=== PATIENT | female | born 1970 | race Asian ===

== ENCOUNTER 2017-10-18 20:11 | Emergency (ER) | payer OTHER ==
--- NOTE | 2017-10-18 20:35 | PDOC ---
History of Present Illness - History of Present Illness Initial Comments: 10/18/17 20:46 Patient is a 49 F with no significant PMHx, who presents with epigastric pain for 1 week. She states she had the flu last week with fever and cough. Patient states that her cough resolved after 3 days into her flu. Patient presents today with epigastric pain that worsened last night. She describes her pain as sharp, constant, and radiates to her right upper back. She also states that she produced a red-like sputum today that smells rust-like. She states She also admits to associated SOB and feeling overly tired. Denies recent nausea, vomiting, diarrhea. Denies chest pain, diaphoresis. Denies recent travel, trauma, excessive drinking, taking medications. Surgical Hx: (9 years ago) <Nichol Valenzuela - Last Filed: 10/18/17 20:46> <Ze Pierce - Last Filed: 10/19/17 06:37> - General Chief Complaint: Pain, Acute Stated Complaint: UPPER ABDOMINAL PAIN Time Seen by Provider: 10/18/17 20:14 Past History <Nichol Valenzuela - Last Filed: 10/18/17 20:46> <Ze Pierce - Last Filed: 10/19/17 06:37> - Past Medical History Allergies/Adverse Reactions: Allergies Allergy/AdvReac Type Severity Reaction Status Date / Time No Known Allergies Allergy Verified 10/18/17 20:13 Home Medications: Ambulatory Orders Famotidine [Pepcid] 20 mg PO BID #20 tablet 10/18/17 Review of Systems - Review of Systems Comments:: 10/18/17 20:46 GENERAL/CONSTITUTIONAL: No fever or chills. No weakness. HEAD, EYES, EARS, NOSE AND THROAT: No change in vision. No ear pain or discharge. No sore throat. GASTROINTESTINAL: +epigastric pain. No nausea, vomiting, diarrhea or constipation. GENITOURINARY: No dysuria, frequency, or change in urination. CARDIOVASCULAR: No chest pain or shortness of breath. RESPIRATORY: +SOB +cough, No recent wheezing. MUSCULOSKELETAL: No joint or muscle swelling or pain. No neck or back pain. SKIN: No rash NEUROLOGIC: No headache, vertigo, loss of consciousness, or change in strength/ sensation. ENDOCRINE: No increased thirst. No abnormal weight change. HEMATOLOGIC/LYMPHATIC: No anemia, easy bleeding, or history of blood clots. ALLERGIC/IMMUNOLOGIC: No hives or skin allergy. <Nichol Valenzuela - Last Filed: 10/18/17 20:46> *Physical Exam - Vital Signs Last Vital Signs Temp Pulse Resp BP Pulse Ox 98.4 F 76 16 154/82 99 10/18/17 20:14 10/18/17 20:14 10/18/17 20:14 10/18/17 20:14 10/18/17 20:14 - Physical Exam Comments: 10/18/17 20:53 GENERAL: Awake, alert, and fully oriented, in no acute distress HEAD: No signs of trauma EYES: PERRLA, EOMI, sclera anicteric, conjunctiva clear ENT: Auricles normal inspection, hearing grossly normal, nares patent. Pharyngeal erythema without exudates. Moist mucosa NECK: Normal ROM, supple, no lymphadenopathy, JVD, or masses LUNGS: Breath sounds equal, clear to auscultation bilaterally. No wheezes, and no crackles HEART: Regular rate and rhythm, normal S1 and S2, no murmurs, rubs or gallops ABDOMEN: Soft, epigastric tenderness to palpation. Normoactive bowel sounds. No guarding, no rebound. No masses EXTREMITIES: Normal range of motion, no edema. No clubbing or cyanosis. No cords, erythema, or tenderness NEUROLOGICAL: Cranial nerves II through XII grossly intact. Normal speech, normal gait SKIN: Warm, Dry, normal turgor, no rashes or lesions noted. <Nichol Valenzuela - Last Filed: 10/18/17 20:46> ED Treatment Course - LABORATORY CBC & Chemistry Diagram: 10/18/17 21:03 10/18/17 22:10 <Ze Pierce - Last Filed: 10/19/17 06:37> Medical Decision Making - Medical Decision Making 10/19/17 06:36 observed x 3 hrs serial abd exams symptoms imporved after ED mgmt at time of dc, abd nt, tolerating PO. Likley GI in original. Outpt antacid. GI fu <Ze Pierce - Last Filed: 10/19/17 06:37> *DC/Admit/Observation/Transfer <Nichol Valenzuela - Last Filed: 10/18/17 20:46> <Ze Pierce - Last Filed: 10/19/17 06:37> Diagnosis at time of Disposition: Gastritis Qualifiers: Gastritis type: unspecified gastritis Chronicity: acute Gastritis bleeding: presence of bleeding unspecified Qualified Code(s): K29.00 - Acute gastritis without bleeding - Discharge Dispostion Disposition: HOME Condition at time of disposition: Stable - Prescriptions Prescriptions: Famotidine [Pepcid] 20 mg PO BID #20 tablet - Referrals Referrals: Seb Aponte MD [Staff Physician] - Call tomorrow - Patient Instructions Printed Discharge Instructions: DI for Gastritis
[2017-10-18] MEDS ORDERED: ACETAMINOPHEN 1000 MG/100 ML VIAL (NON FORMULARY) IVPB ONE (20:39)
[2017-10-18 20:44] VITALS: BP 154/82; PULSE 76; TEMP 98.4; BMI 22.3
[2017-10-18] MEDS ORDERED: ACETAMINOPHEN INJECTION 100 ML IVPB ONE (21:29)
[2017-10-18] MEDS ORDERED: FAMOTIDINE 20 MG/50 ML IVPB 20 MG/50 ML MG IVPB ONE ×2 (21:29→22:50)
[2017-10-18] MEDS ORDERED: FAMOTIDINE IV 20 MG/12 ML VIAL IVPUSH SCH (22:00)
[2017-10-18 22:18] LABS: BASO % 0.6 % (0-2.0); EOS % 0.9 % (0-4.5); HEMATOCRIT 43.2 % (32.4-45.2); HEMOGLOBIN 14.4 GM/dl (10.7-15.3); LYMPH % 31.3 % (8-40); MCH 30.6 pg (25.7-33.7); MCHC 33.3 g/dl (32.0-36.0); MEAN PLT VOLUME 10.9 fl (7.5-11.1); MONO % 6.5 % (3.8-10.2); NEUT % 60.7 % (42.8-82.8); PLATELET COUNT 213 K/MM3 (134-434); RDW 12.2 % (11.6-15.6); WHITE BLOOD COUNT 6.3 K/mm3 (4.0-10.8)
[2017-10-18 22:42] LABS: ALBUMIN 4.2 g/dl (3.5-5.0); ALK PHOS 60 U/L (32-92); ANION GAP 2 (8-16); BILIRUBIN,TOTAL 0.6 mg/dl (0.2-1.0); BLOOD UREA NITROGEN 11 mg/dl (7-18); CHLORIDE 103 mmol/L (98-107); CO2 29 mmol/L (22-28); CREATININE 0.6 mg/dl (0.6-1.3); GLUCOSE,RANDOM 94 mg/dl (74-106); SGOT/AST 15 U/L (10-42); SGPT/ALT 12 U/L (10-40); SODIUM 134 mmol/L (136-145); TOT PROT 6.5 g/dl (6.4-8.3)
[2017-10-18] MEDS ORDERED: MAG HYDROX/AL HYDROX/SIMETH 355 ML ORAL.SUSP PO ONE (22:49)
[2017-10-18] MEDS ORDERED: MAG HYDROX/AL HYDROX/SIMETH 30 ML UNIT-DOSE CUP ONE (22:50)
[2017-10-18] MEDS ORDERED: FAMOTIDINE IV 20 MG/12 ML VIAL IVPUSH ONE (23:00)
[2017-10-18 23:19] LABS: LIPASE 37 U/L (73-393)
--- NOTE | 2017-10-20 14:58 | EKG ---
Test Reason : Blood Pressure : / mmHG Vent. Rate : 068 BPM Atrial Rate : 068 BPM P-R Int : 118 ms QRS Dur : 086 ms QT Int : 400 ms P-R-T Axes : 063 065 047 degrees QTc Int : 425 ms NORMAL SINUS RHYTHM NORMAL ECG NO PREVIOUS ECGS AVAILABLE Confirmed by SALEEM RIVAS MD ([id number] on 10/20/2017 2:58:15 PM Referred By: DR RANDHAWA Confirmed By:SALEEM RIVAS MD
== END 2017-10-18 23:40 | disposition home or self-care (01) ==
LOC: FER 20:11
PROC: 3E033GC Introduction of Other Therapeutic Substance into Peripheral Vein, Percutaneous Approach (ICD-10-PCS; principal; 2017-10-18)
PROC: 3E033NZ Introduction of Analgesics, Hypnotics, Sedatives into Peripheral Vein, Percutaneous Approach (ICD-10-PCS; 2017-10-18)
DX: K29.00 Acute gastritis without bleeding (principal)
CPT/HCPCS: 36415; 71046-TC; 80053; 83690; 84484; 84703; 85025; 93005; 99281-25

== ENCOUNTER 2018-09-01 11:11 | Emergency (ER) | payer BC, OTHER ==
[2018-09-01 11:17] VITALS: TEMP 98.7; BMI 20.5
--- NOTE | 2018-09-01 11:19 | PDOC ---
History of Present Illness - General Chief Complaint: Headache Stated Complaint: head ache,neck pain,numbness to rigth side of face Time Seen by Provider: 09/01/18 11:17 - History of Present Illness Initial Comments: Eliana Slade is a 48yo woman with no known medical history who presents with 2-3 days of headache and now drooping of the right eyelid that started this morning , along with blurry vision in the R eye. Ms Slade does not speak fluent Uzbek and her is present to assist with any needed translation. Ms Slade reports that she started to have pain in the right occipital head and upper right neck 2-3 days ago. She applied a topical Khmer medication (unable to specify what it is) with some improvement in her symptoms. The following day , she woke up with a severe headache over the top of her head and around to the posterior head. She denies any associated symptoms at that time including nausea /vomiting or neurological changes. She did not take any pain medication, but her mother gave her a prescription medication. They do not know what the medicine was but say it is to "improve blood flow in the head" and that it is "for strokes." After taking her mother's medication, she does note some nausea but no vomiting. Today she woke up without a headache but noted drooping of her right upper eyelid, R eye watering, and R eye blurriness. Per her , her face looks normal otherwise, and her voice sounds normal as well. She denies fevers, difficulty swallowing, weakness in her extremities, or other neurological symptoms. She does get occasional headaches but denies h/o migraines. She does not take any medications regularly at home. She has never had anything similar occur in the past. Past History - Past Medical History Allergies/Adverse Reactions: Allergies Allergy/AdvReac Type Severity Reaction Status Date / Time No Known Allergies Allergy Verified 09/01/18 11:14 Home Medications: Ambulatory Orders Hydrocortisone 1% Cream [Hytone 1% Cream -] 1 applic TP BID PRN #1 tube Naproxen 500 mg PO BID PRN 7 Days #14 tablet 09/01/18 COPD: No Other medical history: head aches,neck issues - Suicide/Smoking/Psychosocial Hx Smoking History: Never smoked Have you smoked in the past 12 months: No Hx Alcohol Use: No Drug/Substance Use Hx: No Substance Use Type: None Neuro Specific PMHX - Complaint Specific PMHX Glaucoma: No Herniated Disk: No Laminectomy: No Migraine: No Multiple Sclerosis: No Neuropathy: No TIA: No Review of Systems - Review of Systems Comments:: General: No fevers, no chills, no weight or appetite change, no malaise HEENT: +blurry vision, +recent headache, +drooping eyelid, no changes in hearing no congestion, no sore throat CV: No chest pain, no palpitations, no LE edema Pulm: No SOB, no cough, no wheezing GI: No nausea or vomiting, no change in bowel habits, no melena : No frequency, no urgency, no dysuria Musc: No back pain, no joint swelling, no recent injury Skin: No rash, no lesions, no erythema Endo: No excessive thirst, no heat/cold intolerance Heme: No unusual bruising or bleeding, no swollen glands Neuro: No syncope, no numbness/tingling, no focal weakness Vasc: No claudication Psych: No recent change in mood, no SI or HI *Physical Exam - Vital Signs Last Vital Signs Temp Pulse Resp BP Pulse Ox 98.7 F 76 18 129/72 99 09/01/18 11:12 09/01/18 11:12 09/01/18 11:12 09/01/18 11:12 09/01/18 11:12 - Physical Exam Comments: General: Comfortable, no acute distress HEENT: PERRL, EOMI, ptosis of R eyelid but face otherwise symmetric. MMM, voice normal, normal neck ROM, no LAD. Rash v excoriations to posterior neck, b/l. No neck tenderness, no meningeal signs, no sinus tenderness. Cards: RRR, no murmur appreciated Pulm: Comfortable on room air, clear to auscultation bilaterally Abd: Soft, nontender, nondistended : No CVA tenderness Ext: Atraumatic. No LE edema. ROM intact. Strength 5/5 and equal bilaterally Vasc: Extremities WWP. Palpable radial and pedal pulses bilaterally Skin: Normal color, no rashes or lesions other than posterior neck as mentioned above. Neuro: A&Ox3, R ptosis and slight R-sided facial sensory changes (light touch feels "different") but CN otherwise intact, normal speech, motor/sensory grossly intact and symmetric in torso and extremities Psych: Mood appropriate to situation Moderate Sedation - Procedure Monitoring Vital Signs: Procedure Monitoring Vital Signs Temperature 98.7 F 09/01/18 11:12 Pulse Rate 76 09/01/18 11:12 Respiratory Rate 18 09/01/18 11:12 Blood Pressure 129/72 09/01/18 11:12 O2 Sat by Pulse Oximetry (%) 99 09/01/18 11:12 ED Treatment Course - LABORATORY CBC & Chemistry Diagram: 09/01/18 11:45 09/01/18 12:25 Medical Decision Making - Medical Decision Making 09/01/18 12:47 Eliana Slade is an otheriwe healthy 48yo woman who presents with b/l headache starting 2-3 days ago with associated right neck or right occipital head tenderness. Starting today her headache has resolved but she now has right- sided ptosis and blurred vision without any other neurological changes. - Differential includes CVA or intracranial hemorrhage, migraine, viral illness w/ Burger's palsy, or previously undiagnosed mass/tumor. Less likely meningitis given lack of fever or meningeal signs and only focal neurological symptoms. - CBC, CMP sent to r/o acute abnormalities - CT head completed soon after arrival in ED. Reviewed in ED and read by radiologist; no abnormalities noted. 09/01/18 12:54 - Chemistry hemolized. Resent. Added lyme to r/o possible cause of Burger's palsy. ESR added to r/o temporal arteritis. However, both relatively unlikely given lack of associated symptoms. - CBC reviewed. No concerning abnormalities noted. - 1L NS bolus and reglan ordered 09/01/18 13:33 - Labs reviewed, no abnormalities on coags or chemistry - Spoke to Dr Almanzar for neurology recs. MRI brain ordered per recommendation. Dr Almanzar will see pt later today 09/01/18 14:51 - MRI completed, Read by radiology. No pathology noted - Dr Almanzar called, is on his way to see Ms Slade - Dispo depending on neurology recs 09/01/18 15:13 - Dr Almanzar saw pt in ED. Feels symptoms are most likely due to a migraine. - Plan to discharge patient home w/ follow up Seen and discussed with Dr Jaziel Lisa PGY1 *DC/Admit/Observation/Transfer Diagnosis at time of Disposition: Migraine - Discharge Dispostion Disposition: HOME Condition at time of disposition: Stable Decision to Admit order: No - Prescriptions Prescriptions: Hydrocortisone 1% Cream [Hytone 1% Cream -] 1 applic TP BID PRN #1 tube PRN Reason: Wound Care Naproxen 500 mg PO BID PRN 7 Days #14 tablet PRN Reason: Pain - Referrals Referrals: Lam Almanzar MD [Staff Physician] - [facility] [place] [facility] [place] [Provider Group] - Patient Instructions Printed Discharge Instructions: DI for Migraine Additional Instructions: Discharge Instructions: You were seen in the emergency department for right-sided facial weakness and eyelid drooping as well as right facial numbness. You had blood tests, a CT scan and an MRI of your brain; the results of these tests were all normal. You were also evaluated by a neurologist, Dr Almanzar. Based on all of the tests and your neurological evaluation, your symptoms are most likely due to migraine headache. Home Care: - You have been prescribed an anti-inflammatory pain medication called naproxen. You may take this as needed up to twice daily for head or neck discomfort. This medication is also available over the counter (brand name Aleve ), but if you need to continue taking this medication for more than a week, you should follow up with a primary doctor. - You have also been prescribed a cream for the rash on the back of your neck. You may apply this lotion up to twice per day for one week. You may also consider applying any fragrance-free lotion such as Cetaphil, Aveeno, or Eucerin. Follow Up: - Schedule an appointment with neurology for follow up within the next 1-2 weeks. You have been referred to Dr Almanzar, the neurologist who saw you in the emergency department. - Make an appointment with a primary care physician for within the next 1-2 weeks for general medical follow up. You should establish regular medical care. You should also follow up if your symptoms continue for more than a week with the prescribed treatment. You have been referred to the internal medicine resident clinic to establish care. - Seek immediate medical treatment if your symptoms worsen, if you have the worst headache of your life (especially if it starts suddenly), if you have significant facial droop, difficulty speaking, slurred speech, or additional neurological symptoms such as weakness or numbness in your arm/leg on one side. - Post Discharge Activity
[2018-09-01] MEDS ORDERED: SODIUM CHLORIDE 0.9% 1000 ML INFUS.BAG IV ONE (12:00)
[2018-09-01 12:03] LABS: BASO % 0.5 % (0-2.0); EOS % 1.8 % (0-4.5); HEMATOCRIT 43.9 % (32.4-45.2); HEMOGLOBIN 14.3 GM/dl (10.7-15.3); LYMPH % 37.3 % (8-40); MCH 29.9 pg (25.7-33.7); MCHC 32.6 g/dl (32.0-36.0); MEAN CELL VOLUME 91.6 fl (80-96); MEAN PLT VOLUME 10.1 fl (7.5-11.1); MONO % 7.4 % (3.8-10.2); PLATELET COUNT 210 K/MM3 (134-434); RBC 4.79 M/mm3 (3.60-5.2); RDW 12.6 % (11.6-15.6); WHITE BLOOD COUNT 4.5 K/mm3 (4.0-10.8)
[2018-09-01] MEDS ORDERED: METOCLOPRAMIDE HCL INJECTION 10 MG/2 ML VIAL IVPUSH ONE (12:05)
[2018-09-01] MEDS ORDERED: METOCLOPRAMIDE HCL INJECTION 10 MG/2 ML VIAL ONE (12:08)
--- NOTE | 2018-09-01 12:28 | PDOC ---
Attending Attestation - Resident Resident Name: Nikki Lisa - ED Attending Attestation I have performed the following: I have examined & evaluated the patient, The case was reviewed & discussed with the resident, I agree w/resident's findings & plan, Exceptions are as noted - HPI HPI: 09/01/18 12:22 48 yo F with no pmhx here with c/o headache which started 3 days ago, now with right sided facial numbness and tingling sensation, also feels blurry vision on right eye. no h/o migraines, no trauma. no f/c. h/o headaches, but never diagnosed with migraines. did have associated nausea after taking medication she received from family member " to increase blood flow to brain" unsure of name of medication. no arm or leg weakness. no balance issues. no speech changes. - Physicial Exam PE: 09/01/18 12:24 awake alert head atraumatic. mild right eyelid ptosis. no temporal artery tenderness. lungs clear bilaterally heart rrr no mrg abd soft nt nd. ext wwp. nuero 5/5 strength all four ext. sensation decreased right upper face, mild eye weakness with closing eyes, no malalignment appreciated. forehead wrinkles bilaterally with eyebrow raise. speech clear. VF intact. EOMI. perrl. TM clear bilaterally. posterior neck skin with eczematous type rash. 09/01/18 15:18 - Medical Decision Making 09/01/18 12:27 pt with decreased sensation right sided facal weakness reported vision changes. diffferential early bells palsy ( incomlete ) cva, mass lesion, electrolyte abnramlity, atypical migraine. plan lyme titer, ct head. labs. due to fact incomplete findings. pt may require mri. will consult nuerology, Dr Sivan webb. awaiting call back. 09/01/18 15:18 ct head negative. mri unremarkable. pt evaluated by nuerology, felt to be atypical migraine with neck strain exacerbation or component . dermatitis type rash posterior neck recommend steroid cream. will followup with nuerology as outpt. naprosyn bid for pain prn. Heart Score/ECG Review #1 General ECG Interpretation: Sinus Rhythm, Normal Intervals, No acute ischemic changes Compared to previous ECG there are: Other (sinus bradycardia 59)
[2018-09-01 12:53] LABS: ACTIVATED PTT 30.8 SECONDS (25.2-36.5)
[2018-09-01 12:55] LABS: ALBUMIN 4.3 g/dl (3.5-5.0); ALK PHOS 76 U/L (32-92); ANION GAP 4 MMOL/L (8-16); BILIRUBIN,TOTAL 0.5 mg/dl (0.2-1.0); BLOOD UREA NITROGEN 12 mg/dl (7-18); CALCIUM 9.4 mg/dl (8.4-10.2); CHLORIDE 106 mmol/L (98-107); CO2 27 mmol/L (22-28); CREATININE 0.7 mg/dl (0.6-1.3); GLUCOSE,RANDOM 124 mg/dl (74-106); POTASSIUM 4.4 mmol/L (3.5-5.1); SGOT/AST 18 U/L (10-42); SGPT/ALT 18 U/L (10-40); SODIUM 137 mmol/L (136-145); TOT PROT 7.2 g/dl (6.4-8.3)
[2018-09-01 12:58] LABS: INR 1.02 (0.82-1.09); PROTHROMBIN TIME (PATIENT) 11.4 SEC (10.2-13.0)
[2018-09-01 14:40] VITALS: BP 119/77; PULSE 78
--- NOTE | 2018-09-01 15:24 | CON.NEURO ---
Consult Consult Specialty:: Neurology Referred by:: Dr. Gabriel Reason for Consultation:: Headache, Ptosis, Facial Numbness - History of Present Illness Chief Complaint: Headache, Facial numbness History of Present Illness: 48 year old woman who awoke from a nap 2 days ago with headache at the top of her head and facial numbness/tingling. She took one of her mother's prescribed blood thinner medications (name unknown) that she takes for stroke prevention, and her headache went away after two hours. She has had intermittent facial numbness since then. Today she went to see a doctor and an executive services administrator was concerned enough to send her to the ER prior to seeing MD. IN ER she was noted earlier to have ptosis of hte right eye which has subsequently cleared. She does have some ongoing facial paresthesisas. SHe has had headaches before, no associated photophobia, phonophobia or nausea. Also some neck pain on and off. Yesterday. she had pain for a while over an area in the right occiput, and points to the area where the greater occipital nerve typically emerges. - History Source History Provided By: Patient, Family Member Limitations to Obtaining History: No Limitations - Alcohol/Substance Use Hx Alcohol Use: No - Smoking History Smoking history: Never smoked Have you smoked in the past 12 months: No Home Medications - Allergies Allergies/Adverse Reactions: Allergies Allergy/AdvReac Type Severity Reaction Status Date / Time No Known Allergies Allergy Verified 09/01/18 11:14 - Home Medications Home Medications: Ambulatory Orders NK [No Known Home Medication] 09/01/18 Physical Exam-Neuro Vital Signs: Vital Signs Temperature 98.7 F 09/01/18 11:12 Pulse Rate 78 09/01/18 14:39 Respiratory Rate 18 09/01/18 11:12 Blood Pressure 119/77 09/01/18 14:39 O2 Sat by Pulse Oximetry (%) 99 09/01/18 11:12 Constitutional: Yes: Well Nourished, No Distress Neck: Yes: WNL Labs: CBC, BMP 09/01/18 11:45 09/01/18 12:25 INR, PTT INR 1.02 (0.82-1.09) 09/01/18 12:29 - Neuro Exam Level Of Consciousness: Yes: Alert, Oriented to Person, Oriented to Place, Oriented to Time Eyes: Yes: PERRLA Speech: WNL Cranial Nerves II-XII Intact: No (patchy V2 paresthesias, not all of v2) DTR's: 2+ Left Bicep, 2+ Right Bicep, 2+ Left Tricep, 2+ Right Tricep, 2+ Left Brachioradialis, 2+ Right Brachioradialis Babinski: Absent Response to light touch: Normal Motor Strength: 5/5: Left Arm, Right Arm, Left Leg, Right Leg (No pronator drift ) Gait: Normal Imaging - Results Cat Scan: Report Reviewed Ultrasound: Report Reviewed (negative) Problem List - Problems (1) Migraine with aura Code(s): G43.109 - MIGRAINE WITH AURA, NOT INTRACTABLE, W/O STATUS MIGRAINOSUS (2) Occipital neuralgia of right side Code(s): M54.81 - OCCIPITAL NEURALGIA Assessment/Plan This is likely a migrainous phenomenon triggered by occipital neuralgia, perhaps associated with cervical spine disease. The normal MRI and non- vascular pattern are reassuring. I can follow her up as an outpatient and she can take naprosyn 200-400 bid for a couple of days until she feels better.
--- NOTE | 2018-09-03 12:35 | EKG ---
Test Reason : Blood Pressure : / mmHG Vent. Rate : 059 BPM Atrial Rate : 059 BPM P-R Int : 120 ms QRS Dur : 076 ms QT Int : 426 ms P-R-T Axes : 052 050 060 degrees QTc Int : 421 ms SINUS BRADYCARDIA OTHERWISE NORMAL ECG WHEN COMPARED WITH ECG OF 18-OCT-2017 20:17, NO SIGNIFICANT CHANGE WAS FOUND Confirmed by SILVA REN MD ([id number]) on 09/03/2018 12:35:10 PM Referred By: MD WOOD Confirmed By:SILVA REN MD
== END 2018-09-01 15:35 | disposition home or self-care (01) ==
LOC: FER 11:11
PROC: 3E033GC Introduction of Other Therapeutic Substance into Peripheral Vein, Percutaneous Approach (ICD-10-PCS; principal; 2018-09-01)
PROC: 3E0337Z Introduction of Electrolytic and Water Balance Substance into Peripheral Vein, Percutaneous Approach (ICD-10-PCS; 2018-09-01)
DX: G43.909 Migraine, unspecified, not intractable, without status migrainosus (principal)
CPT/HCPCS: 36415; 70450-TC; 70551-TC; 80053; 84703; 85025; 85610; 85651; 85730; 86618; 93005; 99283-25; J7030

== ENCOUNTER 2018-11-26 03:46 | Emergency (ER) | payer BC ==
[2018-11-26 03:55] VITALS: BP 148/98; PULSE 80; TEMP 97.7; BMI 24.7
[2018-11-26] MEDS ORDERED: MAG HYDROX/AL HYDROX/SIMETH 30 ML UNIT-DOSE CUP ONE (04:05)
--- NOTE | 2018-11-26 04:05 | PDOC ---
History of Present Illness - General Chief Complaint: Chest Pain Stated Complaint: CHEST PAIN Time Seen by Provider: 11/26/18 03:59 History Source: Patient Exam Limitations: No Limitations - History of Present Illness Initial Comments: 11/26/18 04:06 This is a 48-year-old female who comes in complaining of a burning sensation radiating from her abdomen up to her throat. Patient said she has had it in the past and saw her primary care doctor who worked her up for cardiac causes that they were normal. Patient said that the pain is worse since she took an ibuprofen for the pain. Patient denies any cough or congestion, patient denies any fevers or chills nausea vomiting or diarrhea. Patient denies any history of hypertension, high cholesterol, diabetes or family history of heart disease. Patient says the pain woke her from sleep. Allergies: None Past Medical History: none Social history: Lives with family. No smoking. No alcohol. No illicit drugs. Surgical history: None General: No fevers or chills, no weakness, no weight loss HEENT: No change in vision. No sore throat,. No ear pain CardioVascular: no chest discomfort. No shortness of breath Respiratory:No cough, or wheezing. Gastrointestinal: no nausea, vomiting, diarrhea or constipation, No rectal bleeding Genitourinary: No dysuria, hematuria, or frequency Musculoskeletal: No joint or muscle pain or swelling Neurologic: No headache, vertigo, dizziness or loss of consciousness Psychiatric: nor depression Skin: No rashes or easy bruising Endocrine: no increased thirst or abnormal weight change Allergic: no skin or latex allergy All other systems reviewed and normal Exam: General: Well-nourished well-developed individual, no acute distress HEENT: Throat: Normal, tonsils normal, no erythema or exudate Neck: Supple, no meningeal signs, no lymphadenopathy Eyes::Pupils equal reactive and round, extraocular motion intact Chest: Nontender to palpation Cardiac: S1-S2 normal, regular rate and rhythm, no murmurs rubs or gallops Respiratory: Lungs clear to auscultation bilateral Abdomen: Soft, nondistended, normal bowel sounds, there is no tenderness on palpation diffusely Extremities: Warm, dry, no cyanosis, clubbing, or edema Skin: No rashes Neuro: Alert and oriented x3, CN II - XII intact, nonfocal exam with normal strength, normal sensation, normal reflexes, normal gait, Psych: Normal mood and affect Past History - Past Medical History Allergies/Adverse Reactions: Allergies Allergy/AdvReac Type Severity Reaction Status Date / Time No Known Allergies Allergy Verified 09/01/18 11:14 Home Medications: Ambulatory Orders NK [No Known Home Medication] 11/26/18 COPD: No - Suicide/Smoking/Psychosocial Hx Smoking History: Never smoked Have you smoked in the past 12 months: No Hx Alcohol Use: No Drug/Substance Use Hx: No Substance Use Type: None *Physical Exam - Vital Signs Last Vital Signs Temp Pulse Resp BP Pulse Ox 97.7 F 80 18 148/98 100 11/26/18 03:50 11/26/18 03:50 11/26/18 03:50 11/26/18 03:50 11/26/18 03:50 Moderate Sedation - Procedure Monitoring Vital Signs: Procedure Monitoring Vital Signs Temperature 97.7 F 11/26/18 03:50 Pulse Rate 80 11/26/18 03:50 Respiratory Rate 18 11/26/18 03:50 Blood Pressure 148/98 11/26/18 03:50 O2 Sat by Pulse Oximetry (%) 100 11/26/18 03:50 ED Treatment Course - Medications Given in the ED: ED Medications Discontinued Medications Generic Name Dose Route Start Last Admin Trade Name Freq PRN Reason Stop Dose Admin Al Hydroxide/Mg Hydroxide 30 ml 11/26/18 04:06 11/26/18 04:08 Mylanta Oral Suspension - PO 11/26/18 04:07 30 ml ONCE ONE Administration *DC/Admit/Observation/Transfer Diagnosis at time of Disposition: Gastritis Qualifiers: Gastritis type: unspecified gastritis Chronicity: unspecified Gastritis bleeding: without bleeding Qualified Code(s): K29.70 - Gastritis, unspecified, without bleeding - Discharge Dispostion Disposition: HOME Condition at time of disposition: Stable Decision to Admit order: No - Referrals Referrals: Arlette Turpin [Primary Care Provider] - - Patient Instructions Additional Instructions: Purchase veim-pcd-reygbrn antacid such as Nexium and take it once a day for the next 2 weeks. In addition if you experience any of the burning chest pain to 2 tums. Return to the emergency department immediately with ANY new, persistent or worsening symptoms. Continue any medications as previously prescribed by your physician. You should follow up with your primary doctor as soon as possible regarding today's emergency department visit. . Please make sure your doctor reviews the results of your emergency evaluation. Thank you for coming to the Emergency Department today for your care. It was a pleasure to see you today. Please note that your evaluation is INCOMPLETE until you follow-up with your doctor. - Post Discharge Activity
[2018-11-26] MEDS ORDERED: MAG HYDROX/AL HYDROX/SIMETH 30 ML UNIT-DOSE CUP PO ONE (04:06)
--- NOTE | 2018-11-27 11:22 | EKG ---
Test Reason : Blood Pressure : / mmHG Vent. Rate : 064 BPM Atrial Rate : 064 BPM P-R Int : 120 ms QRS Dur : 076 ms QT Int : 388 ms P-R-T Axes : -01 043 028 degrees QTc Int : 400 ms NORMAL SINUS RHYTHM NORMAL ECG WHEN COMPARED WITH ECG OF 01-SEP-2018 15:29, NO SIGNIFICANT CHANGE WAS FOUND Confirmed by RISHI MAZARIEGOS MD ([id number]) on 11/27/2018 11:22:18 AM Referred By: MD BLOCK Confirmed By:RISHI MAZARIEGOS MD
== END 2018-11-26 05:45 | disposition home or self-care (01) ==
LOC: FER 03:46
DX: K29.70 Gastritis, unspecified, without bleeding (principal)
CPT/HCPCS: 36415; 82550; 82553; 84484; 93005; 99281-25

== ENCOUNTER 2018-12-08 20:29 | Emergency (ER) | payer BC ==
[2018-12-08 20:36] VITALS: BP 150/98; PULSE 70; TEMP 98.3; BMI 24.7
--- NOTE | 2018-12-08 20:43 | PDOC ---
History of Present Illness - General Chief Complaint: Pain Stated Complaint: ABD/CHEST/BACK PAIN Time Seen by Provider: 12/08/18 20:42 - History of Present Illness Initial Comments: This 48-year-old woman presents with a few hour history of epigastric pain radiating to her right upper back. Pain began after she drank coffee. Patient was seen with similar symptoms here 3 weeks ago. At that time, symptoms began after taking ibuprofen. 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 Chest and abdominal/pelvic CT were performed here Over the last 24 hours, ordered by her doctors. Official interpretation showed no abnormality except for small left upper lobe pulmonary cavitary lesion and hepatic hemangioma. No other abnormality seen. She was also seen here in September 2017 with epigastric pain consistent with gastritis The patient states that she had upper endoscopy 2 years ago that was reportedly normal. Past History - Past Medical History Allergies/Adverse Reactions: Allergies Allergy/AdvReac Type Severity Reaction Status Date / Time No Known Allergies Allergy Verified 09/01/18 11:14 Home Medications: Ambulatory Orders Ondansetron [Zofran Odt -] 4 mg SL TID PRN #21 od.tablet 12/08/18 Pantoprazole Sodium [Protonix -] 40 mg PO DAILY #20 tablet.ec 12/08/18 COPD: No - Suicide/Smoking/Psychosocial Hx Smoking History: Never smoked Have you smoked in the past 12 months: No Hx Alcohol Use: No Drug/Substance Use Hx: No Substance Use Type: None Review of Systems - Review of Systems Able to Perform ROS?: Yes Comments:: 12 point review of systems is negative except for what is noted in the history of present illness *Physical Exam - Vital Signs Last Vital Signs Temp Pulse Resp BP Pulse Ox 98.3 F 70 18 150/98 100 12/08/18 20:32 12/08/18 20:32 12/08/18 20:32 12/08/18 20:32 12/08/18 20:32 - Physical Exam Comments: GENERAL: Adult female, alert and oriented 3, in moderate distress secondary to epigastric pain HEAD: Normal with no signs of trauma. EYES: PERRLA, EOMI, sclera anicteric, conjunctiva clear. ENT: Ears normal, nares patent, oropharynx clear without exudates. Moist mucous membranes. NECK: Normal range of motion, supple without lymphadenopathy, JVD, or masses. LUNGS: Breath sounds equal, clear to auscultation bilaterally. No wheezes, and no crackles. HEART:Regular rate and rhythm, normal S1 and S2 without murmur, rub or gallop. ABDOMEN:.normal bowel sounds moderate epigastric tenderness without rebound/ involuntary guarding. No masses EXTREMITIES: Normal range of motion, no edema. No clubbing or cyanosis. No erythema, or tenderness. NEUROLOGICAL: Cranial nerves II through XII grossly intact. Normal speech. No focal neurological deficits. MUSCULOSKELETAL: Back non-tender to palpation, no CVA tenderness SKIN: Warm, Dry, normal turgor, no rashes or lesions noted. Moderate Sedation - Procedure Monitoring Vital Signs: Procedure Monitoring Vital Signs Temperature 98.3 F 12/08/18 20:32 Pulse Rate 70 12/08/18 20:32 Respiratory Rate 18 12/08/18 20:32 Blood Pressure 150/98 12/08/18 20:32 O2 Sat by Pulse Oximetry (%) 100 12/08/18 20:32 Medical Decision Making - Medical Decision Making This 48-year-old woman with a history of epigastric pain in the past but reportedly negative upper endoscopy 2 years ago has presented to this ER twice previously in the last year and a half with epigastric pain which started after she drank coffee.. CT of the chest/abdomen/pelvis performed yesterday, ordered by her PMD shows no significant intra-abdominal acute pathology. Exam as noted. The patient has epigastric tenderness today without peritoneal irritation signs. Although plan was for patient to receive parenteral medications for relief of her epigastric pain, patient refused placement of IV. Patient given 20 mg Pepcid/650 milligrams acetaminophen Soon after this, the patient stated that she wanted to leave and follow up with her own doctors. She states that she has an appointment scheduled for her lace machine operator 2 weeks from now. She states that she is hungry and thinks that her pain was severe because she had not eaten. Patient will be given prescription for Protonix 40 mg daily as well as Zofran ODT 4 mg as needed. Patient should avoid coffee/alcohol/spicy or acidic foods. She should return to the emergency room if she has severe, persistent pain or experiences vomiting /fever. She should follow-up with her lace machine operator as already scheduled for further evaluation and treatment *DC/Admit/Observation/Transfer Diagnosis at time of Disposition: Gastritis Qualifiers: Gastritis type: unspecified gastritis Chronicity: acute Gastritis bleeding: without bleeding Qualified Code(s): K29.00 - Acute gastritis without bleeding - Discharge Dispostion Disposition: HOME Condition at time of disposition: Stable - Prescriptions Prescriptions: Ondansetron [Zofran Odt -] 4 mg SL TID PRN #21 od.tablet PRN Reason: Nausea Pantoprazole Sodium [Protonix -] 40 mg PO DAILY #20 tablet.ec - Referrals Referrals: Arlette Turpin [Primary Care Provider] - - Patient Instructions Printed Discharge Instructions: Gastritis Additional Instructions: bland diet Protonix 40mg daily start tomorrow Zofran ODT 4mg up to 3 times a day for nausea followup with your lace machine operator as scheduled - Post Discharge Activity
[2018-12-08] MEDS ORDERED: FAMOTIDINE 20 MG/50 ML IVPB 20 MG/50 ML MG IVPB ONE ×2 (22:15→22:18)
[2018-12-08] MEDS ORDERED: ACETAMINOPHEN 1000 MG/100 ML VIAL (NON FORMULARY) IVPB ONE (22:16)
[2018-12-08] MEDS ORDERED: ACETAMINOPHEN INJECTION 100 ML IVPB ONE (22:18)
[2018-12-08] MEDS ORDERED: FAMOTIDINE 20 MG TABLET PO ONE (22:23)
[2018-12-08] MEDS ORDERED: ACETAMINOPHEN 325 MG TABLET (FP) PO ONE (22:23)
[2018-12-08] MEDS ORDERED: ACETAMINOPHEN 325 MG TABLET (FP) ONE (22:25)
[2018-12-08] MEDS ORDERED: FAMOTIDINE 20 MG TABLET ONE (22:25)
== END 2018-12-08 23:14 | disposition home or self-care (01) ==
LOC: FER 20:29
DX: K29.00 Acute gastritis without bleeding (principal)
CPT/HCPCS: 72141-TC; 99282-25

== ENCOUNTER 2020-10-04 21:36 | Emergency (ER) | payer BC ==
[2020-10-04 21:48] VITALS: BP 147/86; PULSE 82; TEMP 99.5; BMI 22.3
[2020-10-04] MEDS ORDERED: morphine CARPU-JECT 2 MG/1 ML DISP.SYRIN IVPUSH ONE (22:10)
[2020-10-04] MEDS ORDERED: SODIUM CHLORIDE 1,000 ML IV ONE (22:10)
[2020-10-04] MEDS ORDERED: morphine SULFATE 4 MG/ML VIAL ONE (22:15)
[2020-10-04 22:34] LABS: BASO % 1.4 % (0-2.0); EOS % 1.6 % (0-4.5); HEMATOCRIT 39.5 % (32.4-45.2); HEMOGLOBIN 13.2 GM/dl (10.7-15.3); MCH 30.2 pg (25.7-33.7); MCHC 33.5 g/dl (32.0-36.0); MEAN CELL VOLUME 90.2 fl (80-96); MEAN PLT VOLUME 10.1 fl (7.5-11.1); MONO % 7.1 % (3.8-10.2); NEUT % 51.9 % (42.8-82.8); PLATELET COUNT 203 K/MM3 (134-434); RBC 4.38 M/mm3 (3.60-5.2); RDW 12.3 % (11.6-15.6); WHITE BLOOD COUNT 4.6 K/mm3 (4.0-10.8)
[2020-10-04 22:46] LABS: ALBUMIN 4.6 g/dl (3.4-5.0); BILIRUBIN,TOTAL 0.7 mg/dl (0.2-1); CALCIUM 9.8 mg/dl (8.5-10); CREATININE 0.8 mg/dl (0.55-1.3); TOT PROT 7.4 g/dl (6.4-8.2)
[2020-10-04 22:50] LABS: POTASSIUM 4.8 mmol/L (3.5-5.1)
[2020-10-04] MEDS ORDERED: MAGNESIUM CITRATE 300 ML BOTTLE PO ONE (23:50)
[2020-10-04] MEDS ORDERED: MAGNESIUM CITRATE 300 ML BOTTLE ONE (23:52)
== END 2020-10-05 00:03 | disposition home or self-care (01) ==
LOC: FER 21:36
PROC: 3E033NZ Introduction of Analgesics, Hypnotics, Sedatives into Peripheral Vein, Percutaneous Approach (ICD-10-PCS; principal; 2020-10-04)
DX: K59.09 Other constipation (principal); R10.10 Upper abdominal pain, unspecified
CPT/HCPCS: 36415; 74019-TC-FY; 80053; 82550; 83690; 84484; 85025; 93005; 99285-25; C9803; U0003